=== PATIENT | male | born 1995 | race Caucasian/White ===

== ENCOUNTER → 2018-03-03 | Outpatient (CLI) | payer MEDICARE, OTHER ==
--- NOTE | 2018-03-03 17:44 | CONS ---
CONSULTATION DATE OF SERVICE: 03/03/2018 22-year-old gentleman has been evaluated in the sleep center for possible obstructive sleep apnea-hypopnea syndrome. HISTORY OF PRESENT ILLNESS/SLEEP WAKE EVALUATION: SLEEP SCHEDULE: The patient usually goes to bed around 2:00 am and sleeps until around 12:30 pm. FALLING ASLEEP: Presently when he is not using Ativan and Seroquel he does not have problem with falling asleep, but while using these medications, he developed episodes of starting to see dreams right away of falling asleep, vivid dreams. DURING SLEEP: He snores loudly and according to his grandmother, he stops breathing during the sleep. He wakes up from sleep more than 5 times with episodes of nocturia about 3 times a day. He has history of often sleepwalking in the past, but now it is practically disappeared. He wakes up with a panic attack, heartburn, gasping for air. DURING THE DAY/SLEEP WAKE EVALUATION: In the morning, patient wakes up tired, falling asleep during the day. [place] Sleepiness Scale significantly increased to 17, including sleepiness while driving the car. No history of sleep paralysis or cataplexy. PAST MEDICAL HISTORY: Positive for anxiety and depression. MEDICATIONS: Ativan, Seroquel. PAST SURGICAL HISTORY: None. SOCIAL HISTORY: Positive for smoking for about 10 years. Alcohol consumption occasional. Patient also using marijuana. FAMILY HISTORY: Hypertension, heart problems, hyperlipidemia, stroke, arthritis, bronchitis, lung problems, sleep apnea, headaches, diabetes, acid reflux. REVIEW OF SYSTEMS: Multiple awakenings from sleep, sleepiness during the day. PHYSICAL EXAM: GENERAL: 22-year-old gentleman without distress. VITAL SIGNS: BP 139/89, HR 136, pulse around 120, height 6 and 2, weight 349, BMI 43.7. Neck 16.2, temperature 97.9, oxygen saturation on room air, 95%. Oropharynx low position of soft palate. Tonsils present bilaterally. Small oropharyngeal air space. Small nasal passages. Restriction of nasal breathing. Neck Supple, no JVD. Thyroid is not palpable. LUNGS Clear to percussion and to auscultation. Good air exchange. No wheezing or rhonchi. HEART S1, S2 tachycardia. No murmurs, gallops, or rubs. ABDOMEN: Obese. Soft and nontender. Bowel sounds are present. No organomegaly appreciated. EXTREMITIES No clubbing or cyanosis. PANTRY COOK Awake, alert, and oriented X3. Cranial nerves 2 to 7 intact. There is no fasciculation or atrophy. noted. No focal deficits observed. IMPRESSION: 1. Snoring, witnessed episodes of stopped breathing during the sleep. Small oropharyngeal air space, small nasal passages, wide neck, 17.5 Inches in circumference, obstructive sleep apnea-hypopnea syndrome. 2. Obesity, BMI 43.7. 3. Increasing blood pressure in the office. 4. History of anxiety. 5. History of depression. 6. Sleep delay syndrome. 7. History of sleepwalking in the past. 8. Smoker for 10 pack years. 9. Marijuana user. PLAN: 1. Polysomnography for evaluation of patient's breathing during sleep. 2. CPAP/BiPAP titration if sleep study confirms obstructive sleep apnea-hypopnea syndrome. 3. Preferable position during sleep on the side. 4. No driving if patient feels any sleepiness. 5. I will see patient for follow up visit to explain results of testing and following plan. Thank you very much for referring this patient for consultation. Sincerely, Ralph Vasquez MD, PhD, FAASM Diplomat of [employer] [facility] [place] MMODL / IJN: [id number] /
== END | disposition home or self-care (01) ==
LOC: SLEEP 16:37
PROVIDERS: ATTEND Internal Medicine
DX: G47.33 Obstructive sleep apnea (adult) (pediatric) (principal); E66.9 Obesity, unspecified; R03.0 Elevated blood-pressure reading, without diagnosis of hypertension; G47.21 Circadian rhythm sleep disorder, delayed sleep phase type; F12.90 Cannabis use, unspecified, uncomplicated; Z86.59 Personal history of other mental and behavioral disorders; Z87.891 Personal history of nicotine dependence; Z99.89 Dependence on other enabling machines and devices; Z68.41 Body mass index [BMI] 40.0-44.9, adult; Z79.899 Other long term (current) drug therapy
CPT/HCPCS: 99201